=== PATIENT | female | born 1940 | race Caucasian/White ===

== ENCOUNTER 2021-08-17 09:04 | Outpatient (CLI) | payer MEDICARE, OTHER | END 2021-08-17 09:05 | disposition home or self-care (01) | LOC: CSHULT 09:04 | PROVIDERS: ATTEND Internal Medicine | DX: R10.9 Unspecified abdominal pain (principal); N28.1 Cyst of kidney, acquired; K76.0 Fatty (change of) liver, not elsewhere classified | CPT/HCPCS: 76700 ==